=== PATIENT | male | born 1990 | race Caucasian/White ===

== ENCOUNTER 2021-07-07 18:19 | Emergency (ER) | payer BC, OTHER ==
[~2021-07-07] VITALS: Ht 172.7 cm; Wt 108.9 kg
[2021-07-07] MEDS ORDERED: IBUP-1955 PO (19:29)
[2021-07-07] MEDS ORDERED: OXYC-128 PO (19:29)
--- NOTE | 2021-07-07 19:30 | NUR ---
EDMD at pt bedside discussing findings and recommendations with pt.
--- NOTE | 2021-07-07 19:34 | NUR ---
RECIEVED REPORT FROM MICHAELN. PT PENDING DC
--- NOTE | 2021-07-07 19:43 | NUR ---
Pt DCed home with script and aftercare instructions. Pt acknowledged understanding of EDMD consult and aftercare instuctions. Pt states he is feeling fine, denies any dizziness, N/V, lightheadedness, or severe pain. VSS, PEWNL. No s/sx of distress noted.
[2021-07-07 19:58] VITALS: BP 127/85
== END 2021-07-07 19:59 | disposition home or self-care (01) ==
LOC: ER 18:25
DX: S46.911A Strain of unspecified muscle, fascia and tendon at shoulder and upper arm level, right arm, initial encounter (principal); V49.60XA Unspecified car occupant injured in collision with unspecified motor vehicles in traffic accident, initial encounter; Y92.9 Unspecified place or not applicable
CPT/HCPCS: A4663

== ENCOUNTER 2023-03-31 00:01 | Emergency (ER) | payer OTHER ==
[~2023-03-31] VITALS: Ht 172.7 cm; Wt 111.6 kg
[~2023-03-31 00:01] MED LIST: IBUP-1955 PO; OXYC-128 PO
[2023-03-31] MEDS ORDERED: ATOR40TA PO (00:32)
[2023-03-31] MEDS ORDERED: ASPI81TA31 PO (00:32)
[2023-03-31] MEDS ORDERED: CLOP75TA15 PO (00:32)
[2023-03-31] MEDS ORDERED: FAMOTIDINE. 20 MG/2 ML VIAL IV ONE ×2 (00:45→00:57)
[2023-03-31] MEDS ORDERED: LIDOCAINE VISCUS 2% 15 ML UDC MM ONE (00:45)
[2023-03-31] MEDS ORDERED: IV NORMAL SALINE 1000 ML BAG IV ONE (00:45)
[2023-03-31] MEDS ORDERED: ONDANSETRON 4 MG/2 ML VIAL IV ONE (00:45)
[2023-03-31] MEDS ORDERED: MAG HYDROX/AL HYDROX/SIMETH 30 ML LIQUID UDC PO ONE (00:45)
[2023-03-31 00:56] LABS: BASOPHILS % (AUTO) 0.5 % (0.0-2.0); EOSINOPHILS # (AUTO) 0.1 K/uL (0.0-0.7); EOSINOPHILS % (AUTO) 1.6 % (0.0-7.0); HEMATOCRIT 41.1 % (36.7-47.1); HEMOGLOBIN 13.9 g/dL (12.5-16.3); LYMPHOCYTES # (AUTO) 2.8 K/uL (0.8-4.8); LYMPHOCYTES % (AUTO) 38.6 % (20.5-51.5); MEAN CORPUSCULAR HGB CONC 34 g/dL (32.5-36.3); MEAN CORPUSCULAR VOLUME 88.4 fL (73.0-96.2); MONOCYTES # (AUTO) 0.5 K/uL (0.1-1.30); MONOCYTES % (AUTO) 6.8 % (0.0-11.0); NEUTROPHILS # (AUTO) 3.8 K/uL (1.8-8.9); NEUTROPHILS % (AUTO) 52.5 % (38.5-71.5); PLATELET COUNT (AUTO) 265 K/uL (152-348); RED BLOOD CELL COUNT(AUTO) 4.65 MIL/uL (4.06-5.63); RED CELL DISTRIBUTION WIDTH 12.9 % (12.1-16.2); WHITE BLOOD COUNT (AUTO) 7.2 K/uL (3.6-10.2)
[2023-03-31] MEDS ORDERED: ONDANSETRON 4 MG/2 ML VIAL ONE (00:57)
[2023-03-31] MEDS ORDERED: MAG HYDROX/AL HYDROX/SIMETH 30 ML LIQUID UDC ONE (00:57)
[2023-03-31] MEDS ORDERED: LIDOCAINE VISCUS 2% 15 ML UDC ONE (00:57)
[2023-03-31 01:12] LABS: CALCIUM 9.4 mg/dL (8.5-10.1); CREATININE 1.1 mg/dL (0.6-1.3); POTASSIUM 3.8 mmol/L (3.5-5.1)
[2023-03-31 01:18] LABS: ALBUMIN 3.7 g/dL (3.4-5.0); BILIRUBIN,DIRECT 0.1 mg/dL (0.0-0.2); BILIRUBIN,TOTAL 0.4 mg/dL (0.2-1.0); TOTAL PROTEIN, SERUM 6.8 g/dL (6.4-8.2)
[2023-03-31] MEDS ORDERED: FAMO-132 PO (01:45)
[2023-03-31 03:12] VITALS: BP 135/85; TEMP 98.5; O2SAT 98
== END 2023-03-31 03:12 | disposition home or self-care (01) ==
LOC: ER 00:08
DX: R10.12 Left upper quadrant pain (principal); R10.13 Epigastric pain; R07.89 Other chest pain; E78.5 Hyperlipidemia, unspecified; Z88.1 Allergy status to other antibiotic agents; Z79.1 Long term (current) use of non-steroidal anti-inflammatories (NSAID); Z79.82 Long term (current) use of aspirin; Z79.01 Long term (current) use of anticoagulants; Z79.899 Other long term (current) drug therapy; Z86.73 Personal history of transient ischemic attack (TIA), and cerebral infarction without residual deficits
CPT/HCPCS: 99284; 96374; 71045; 96361; 96375; 80076; 80048; 83690; 85025; 36415; J3490; J2405; J7040; A4663